=== PATIENT | male | born 1980 | race Caucasian/White ===

== ENCOUNTER 2018-05-17 06:13 | Inpatient (IN) | payer OTHER, SELFPAY ==
[2018-04-30 15:26] VITALS: BMI 30.3
[2018-05-17] VITALS (15 sets, daily range): BP systolic 139–158; BP diastolic 91–109; PULSE 64–104; RESP 10–20; TEMP 36.2–36.8; O2SAT 92–99; BMI 29.5
--- NOTE | 2018-05-17 | DI.RAD.S_ITS ---
PROCEDURE: XR LUMBAR SPINE 2-3V INDICATIONS: L4-5 TLIF TECHNIQUE: 2 views of the lumbar spine were acquired. COMPARISON: [facility] [place], CR, XR LUMBAR SPINE 2 OR 3 VIEWS, 01/24/2018, 8:21. [facility], CR, XR LUMBAR SPINE 2 OR 3 VIEWS, 10/30/2017, 13:59. [facility], MR, MR LUMBAR SPINE WITH/WITHOUT CONTRAST, 11/03/2017, 9:15. FINDINGS: There is discectomy and posterior fusion at L4-L5 and L5-S1. Surgical hardware are in expected position. IMPRESSION: Discectomy and posterior fusion at L4-L5 and L5-S1. Dictated by: Griselda Barone M.D. on 05/17/2018 at 12:30 Approved by: Griselda Barone M.D. on 05/17/2018 at 12:33
[2018-05-17] MEDS: LACTATED RINGERS 1,000 ML 42 ML IV ×3 (07:07→15:05)
--- NOTE | 2018-05-17 07:45 | PM.PREOP ---
Pre-operative Note Interval Note Pre-op Check: Yes History & Physical Reviewed by Physician and Yes Exam Performed Changes: No
[2018-05-17] MEDS: CEFAZOLIN 2 GM/100 ML FROZ.PIGGY IV ×2 (07:48→16:20)
[2018-05-17] MEDS: BUPIVACAINE LIPOSOME 266 MG/20 ML VIAL INJ (08:30)
[2018-05-17] MEDS: BUPIVACAINE 0.25% W/ EPI VIAL 50 ML INJ (08:30)
[2018-05-17] MEDS: VANCOMYCIN 1,000 MG VIAL 1000 MG TOP (08:31)
[2018-05-17] MEDS: THROMBIN (BOVINE) 5,000 UNIT VIAL 5000 UNIT TOP (08:31)
[2018-05-17] MEDS: SODIUM CHLORIDE 0.9% 1,000 ML, GENTAMICIN 80 MG IRR (08:31)
--- NOTE | 2018-05-17 08:38 | SUR.OPER ---
Prone on spine table, head in foam head support, padded chest and pelvic supports, gel pad at knees, lower legs supported by pillows; nipples, genitalia and toes free of pressure, arms secured on foam padded arm boards at <90 degrees abduction. Tape over blanket at thigh secured to table.
[2018-05-17] MEDS: ACETAMINOPHEN IV 1,000 MG/100 ML VIAL 400 MG IV (11:15)
--- NOTE | 2018-05-17 12:04 | PM.OP.1 ---
Operative Date/Time/Diagnoses Date of procedure: 05/17/18 Time of procedure: 12:04 Pre-op diagnosis: lumbar stenosis with radiculopathy lumbar disc herniation history lumbar laminectomy Post-op diagnosis: same Procedure & Clinicians Procedure: L45 TLIF (post/post innerbody fusion) screws L4, L5, S1 cage icbg revision right L5S1 laminotomy L4-5 laminectomy microscope Same procedure as scheduled: Yes Indications: [age] year old male with intractable pain from stenosis and disc herniation. They had failed conservative management and requested operative intervention. Risks and benefits of surgery were discussed and appropriate consents were obtained. Surgeon: Fidel Hess Ice Cream Freezer Helper: Genia Templeton Click Yes if Unassisted: No Anesthesia Type: General Operative Notes Findings: None Closure Type: primary Specimen(s): none sent Implants & Drains: NuVasive Precept MAS screws Globus Rise cage Applied: catheter Estimated Blood Loss (mL): 20 Procedure in detail: The patient was brought to the operating room and intubated on the table. A time-out was performed. They were then rolled over to the well-padded Luis Armando table in the prone position. Preoperative antibiotics were given. The back was prepped and draped in the standard sterile fashion. A 8 cm incision was made in the midline using his previous midline incision. We dissected down the right sided paraspinals to expose the lamina out over the facets to the transverse processes. Extreme care was taken while going over his previous laminotomy at L5-S1. We exposed his old screws at L5 and S1. The set screws and que were removed. We used a bur to decorticate the transverse processes of L4 and L5. The bur also was used to start the hole at the junction of the transverse process and the facet. We then advanced a gear shifter down the right pedicle of L4 using neuromonitoring. We then checked with a ball probe for a floor and four jacobson. We then tapped and again checked with a ball probe. The screw was placed into the pedicle of L4 on the right. We placed a preliminary que and loosely locked it down. Using a combination of bur and Kerrison rongeur a laminectomy was performed from the right side. We cleared over past the midline and carefully depressed the dura until we were able to decompress the opposite side. We cleared out the neural foramen. He had a large amount of subarticular stenosis that had to be decompressed. This completed the laminectomy at L4-5. This was separate and distinct from the TLIF approach as we were decompressing the canal and the nerves. We then began the TLIF prep. A complete facetectomy was performed on this side at L4-5. We carefully cleaned up the remainder of the foramen until we could easily retract the exiting root as well as clearing medially below the dura and expose the disc space. The disc was prepped with bipolar and then an annulotomy was performed. We performed a diskectomy using a combination of paddles, ewa, Kerrison, and curettes. We distracted the disc using a paddle and locked the que in an open position. We then filled the disc space with Osteocell bone graft. We then placed the globus Rise cage under fluoroscopy and then filled this in with more bone graft. This completed the posterior interbody fusion portion of the TLIF at L5-S1. We then placed the que and locked down the set screws. We then continued our dissection through the scar tissue at L5-S1. We did a complete revision right-sided laminotomy at L5-S1. We tracked down along the L4-5 facet and traced our L5 nerve root until it completely exited out the foramen. We then carefully started retracting the dura medially. There was a large amount of bony osteophytes growing posteriorly around the disc. We finally were able to retract the dura medially. We then used a osteotome to break up these osteophytes and removed them until there is just minimal scar tissue underneath the dura. This was quite extensive due to the large amount of scar tissue from his previous 2 surgeries at this level but it was finally done. The wound was copiously irrigated. A small stab incision was made over the PSIS. We used a Jamshidi needle to aspirate several mL of bone marrow from the pelvis. This was mixed with the remaining Osteocell and combined with all of the locally harvested bone graft and placed in the posterolateral gutter for the posterior fusion of the TLIF at L4-5. The fascia was closed. We then used fluoroscopy and made another 8 cm incision to the left of the midline. Bovie was used to split the fascia and then we percutaneously placed Jamshidi needles down the left pedicles of L4, L5, and S1 with fluoroscopy and neural monitoring. These were changed out 2 guidewires, tapped and then the MAS Precept screws were placed on this side as well. We placed a que and locked it down. Final x-rays were done. The wounds were irrigated. The fascia was closed. Vancomycin powder was placed in the wounds. The superficial and skin were closed. A sterile dressing was placed. The patient was then rolled over extubated and brought to recovery room without complications. Complications: none Condition: stable Disposition: PACU Plan for aftercare: Inpatient. Up with therapy
[2018-05-17] MEDS: HYDROMORPHONE 2 MG INJ 0.5 MG IV ×2 (12:55→13:10)
--- NOTE | 2018-05-17 14:25 | PC.NURSE ---
1335 Pt arrived to room 229 via bed from PACU. at bedside. Pt oriented x 3, is sleepy. SL to L f/a.
[2018-05-17] MEDS: LACTATED RINGERS 1,000 ML 125 ML IV (15:45)
[2018-05-17] MEDS: CELECOXIB 200 MG CAPSULE 400 MG PO (16:00)
[2018-05-17] MEDS: HYDROMORPHONE 1 MG INJ 0.5 MG IV ×2 (16:00→17:54)
[2018-05-17] MEDS: NICOTINE 21 MG PATCH TOP (16:00)
[2018-05-17] MEDS: hydrOXYzine pamoate 25 MG CAPSULE PO ×3 (16:00→23:46)
[2018-05-17] MEDS: HYDROCODONE/ACET 5/325 TABLET 2 TAB PO ×3 (16:00→23:47)
--- NOTE | 2018-05-17 17:12 | PT.IIE ---
Current Diagnoses Spinal stenosis, lumbar region with neurogenic claudication (05/17/18) Intervertebral disc disorders with radiculopathy, lumbar region (05/17/18) Dorsalgia, unspecified (05/17/18) Strain of muscle, fascia and tendon of lower back, subsequent encounter (05/17/18) Other specified postprocedural states (05/17/18) Surgery Performed Operation Date: 05/17/18 07:45 Actual Procedures p L4-5 Laminectomy and Fusion(TLIF)w/Bone Graft, Revision Laminectomy at L5-S1 on Right - Fidel Hess MD Surgical History (Last Updated 04/30/18 @ 15:35 by Ghada Bender, RN) History of laminectomy (Acute ~04/11/17) S/P epidural steroid injection (Acute) Status post right rotator cuff repair (Acute ~2010) Medical History (Last Updated 04/30/18 @ 16:08 by Ghada Bender, RN) Arthritis (Acute) Back pain (Acute) Lumbar disc herniation with radiculopathy (Acute) Lumbar stenosis with neurogenic claudication (Acute) Strain of lumbar region (Acute) URI (upper respiratory infection) (Acute ~03/2018) Physical Therapy Inpatient Evaluation/Re-Eval M1 PT/OT-IP Prior Functional Status Start: 05/17/18 16:56 Freq: NEEDED Status: Active Protocol: Document 05/17/18 16:10 DCW (Rec: 05/17/18 17:11 DCW [id number]) Medical Review Prior Functional Status Medical History Reviewed Yes Mobility and Gait Independent gait with right antalgia Social History Household Members spouse children Living Arrangements House Number of Floors (Floors) Two Floors Number of Stairs To Enter/Railing? Slpit level home, 7 up, 7 down Home Equipment Front Wheel Walker Straight Cane M2 PT-IP Current Condition Start: 05/17/18 16:56 Freq: NEEDED Status: Active Protocol: Document 05/17/18 16:10 DCW (Rec: 05/17/18 17:11 DCW [id number]) Physical Therapy Current Condition Current Condition Evaluation Date 05/17/18 Treatment Diagnosis TLIF/Laminectomy Onset Date 05/17/18 Precautions Lumbar Precautions Log Roll No Twisting Limit Bending Lifting Restriction of 10 lbs Gait Belt above Incisional Area Weight Bearing Status Weight Bearing Status Weight Bear as Tolerated M3 PT-IP Subjective Start: 05/17/18 16:56 Freq: NEEDED Status: Active Protocol: Document 05/17/18 16:10 DCW (Rec: 05/17/18 17:11 DC [id number]) Subjective Physical Therapy Visit Type Type Initial Evaluation Visit Start Time 16:10 Visit Stop Time 16:54 Total Visit Minutes 44 Number of SCIENTIST IMMUNOLOGY Visits 0 Physical Therapy Visit Comments Patient Goals I've been here before, I know what I need to do to get out of here. Walk a few laps and do those stairs. Therapy Pain Assessment Pain When Pain Assessed At Rest Pain Present Pain Present Pain Reported FLACC Pain Scale Face Frequent/constant frown Activity Squirming,shifting Location Lower Back Intensity 6 Scale Used Numeric (1 - 10) Description Throbbing With Movement Pain Behaviors Facial Grimacing Guarding Restlessness Wincing Pain Management Techniques Re-positioning M4 PT-IP Mobility and Gait Start: 05/17/18 16:56 Freq: NEEDED Status: Active Protocol: Document 05/17/18 16:10 DCW (Rec: 05/17/18 17:11 DC [id number]) PT-Bed Mobility Assessment Rolling Type of Rolling Roll to Left Level of Assist Standby Assistance Supine to Sit Supine to Sit Minimal Assistance Sit to Supine Sit to Supine Minimal Assistance PT-Transfer Assessment Sit to and From Stand Sit to and from Stand Minimal Assistance 1 Person Assistance Equipment Transfer Assistive Device Bed Rail Gait Belt Front Wheeled Walker Orthotic/Prosthetic Devices or Brace: No Gait Assessment Gait Gait Assistance Required: Contact Guard Assist Distance (Feet) 150 Able to Maintain Weight Bearing Status Yes During Gait Assistive Devices Assistive Device Gait Belt Front Wheeled Walker Orthotic/Prosthetic Devices or Brace: No Gait Deviations General Gait Pattern Flexed Trunk Comments Gait Comments Pt displayed no knee buckling, reported good strength and stability of bilateral legs PT-Balance Assessment Sitting Balance and Reactions Static Sitting Balance Ability Normal Dynamic Sitting Balance Ability Normal Standing Balance and Reactions Static Standing Balance Ability Good Dynamic Standing Balance Ability Good M5 PT-IP Objective Assessments Start: 05/17/18 16:56 Freq: NEEDED Status: Active Protocol: Document 05/17/18 16:10 DCW (Rec: 05/17/18 17:11 DCW [id number]) Orientation Orientation/Cognition Orientation Name Birthday Date Day of Week Place Situation Language Function Ability No Deficits Noted Safety Awareness Understands Safety Issues Memory Description No Deficits Noted Gross Range of Motion Upper Extremity ROM Assessment Within Functional Limits Lower Extremity ROM Assessment Within Functional Limits Strength Lower Extremity Strength Assessment Right Impaired Comments Strength Comments Pt LE MMT grossly 4-/5 secondary to pain with resisted movement Sensation Assessment Sensation Gross Sensation WNL M7 PT-IP Assessment and Plan Start: 05/17/18 16:56 Freq: NEEDED Status: Active Protocol: Document 05/17/18 16:10 DCW (Rec: 05/17/18 17:11 DCW [id number]) PT Summary Assessment and Plan Potential Rehabilitation Potential Excellent Status of Condition at Evaluation Stable Summary Impairments Pain ROM Strength Gait Activity Tolerance Assessment Summary Pt presents on day of surgery with pain secondary to surgical intervention, which results in some difficulty with transitional movements and ambulation. Pt happily reported once standing and walking that he had no numbness and tingling in his right leg, which is a big change for him, and he was thrilled, despite pain increasing to 9/10 during supine->sit->stand. Pt able to walk with no loss of balance or difficulty, able to shift weight [id number], standing on each leg with UE support using FWW. Skilled therapy should focus on continued gait , stair assessment, TherEx, and transitional movements. Goals Bed Mobility Goal Independent Transfer Goal Independent Gait Goal Independent Gait Distance 300' Other Goals Ascend/Descend 3 stairs x2 with railing independently Days to Meet Goals 2 Frequency of Treatment Frequency Of Treatment Twice a Day Treatment Plan Physical Therapy Treatment Plan Transfer Training Gait Training Therapeutic Exercise Balance Retraining Recommendations To Nursing Amount of Assist Needed 1 Person Assist Discharge Recommendations PT Discharge Recommendations Home
[2018-05-17] MEDS: DOCUSATE 100 MG CAPSULE PO (20:04)
[2018-05-17] MEDS: CELECOXIB 200 MG CAPSULE PO (20:04)
[2018-05-17] MEDS: SENNOSIDES 8.6 MG TABLET 17.2 MG PO (20:05)
[2018-05-17] MEDS: GABAPENTIN 300 MG CAPSULE PO (20:05)
[2018-05-18] VITALS (7 sets, daily range): BP systolic 127–151; BP diastolic 78–97; PULSE 73–90; RESP 16–18; TEMP 36.2–36.8; O2SAT 95–98
[2018-05-18] MEDS: CEFAZOLIN 2 GM/100 ML FROZ.PIGGY IV (00:13)
[2018-05-18] MEDS: HYDROMORPHONE 1 MG INJ 0.2 MG IV (02:20)
[2018-05-18] MEDS: hydrOXYzine pamoate 25 MG CAPSULE PO ×5 (04:25→20:09)
[2018-05-18] MEDS: HYDROCODONE/ACET 5/325 TABLET 2 TAB PO (04:25)
[2018-05-18 05:26] LABS: Hematocrit 39.7 % (41-53); Hemoglobin 13.6 g/dL (13.5-17.5)
--- NOTE | 2018-05-18 07:46 | PM.PNPO.1 ---
Subjective Date Patient Seen: 05/18/18 Time Patient Seen: 07:47 Interval history: He is doing great. All of his neurologic pain in the legs is gone. Back pain is manageable. Exam Vital Signs (past 8 hours): - 05/18/18 00:15 05/18/18 04:00 Temperature 97.9 F 98.1 F Pulse Rate 89 86 Respiratory Rate 18 16 Blood Pressure 139/88 127/80 Pulse Oximetry 98 98 Fraction of Inspired Oxygen 21 Oxygen Delivery Method Room Air Oxygen Flow Rate 0 Const Orientation: alert and oriented x3 Back/Spine/Pelvis Other: Dressing mild dry drainage. 5/5 motor both lower extremities. Objective Labs Result Diagrams: 05/18/18 04:55 Labs: Laboratory Results - last 24 hr 05/18/18 04:55 Hgb 13.6 Hct 39.7 L Assessment & Plan Post-op Postoperative Procedures Operation Date: 05/17/18 07:45 Actual Procedures Side Surgeon p L4-5 Laminectomy and Fusion(TLIF)w/Bone Graft, Revision Laminectomy at L5-S1 on Right Fidel Hess MD He is doing great. Mobilize with physical therapy. Anticipate discharge tomorrow probably. Quality VTE Deep Vein Thrombosis/Pulmonary Embolism Present on Admission: No
[2018-05-18] MEDS: CELECOXIB 200 MG CAPSULE PO ×2 (08:28→20:10)
[2018-05-18] MEDS: DOCUSATE 100 MG CAPSULE PO ×2 (08:28→20:10)
[2018-05-18] MEDS: HYDROCODONE/ACET 5/325 TABLET 1 TAB PO (08:31)
[2018-05-18] MEDS: OXYCODONE IR 5 MG TABLET PO (09:21)
--- NOTE | 2018-05-18 11:15 | PT.IPTN ---
Current Diagnoses Spinal stenosis, lumbar region with neurogenic claudication (05/17/18) Intervertebral disc disorders with radiculopathy, lumbar region (05/17/18) Dorsalgia, unspecified (05/17/18) Strain of muscle, fascia and tendon of lower back, subsequent encounter (05/17/18) Other specified postprocedural states (05/17/18) Surgery Performed Operation Date: 05/17/18 07:45 Actual Procedures p L4-5 Laminectomy and Fusion(TLIF)w/Bone Graft, Revision Laminectomy at L5-S1 on Right - Fidel Hess MD Physical Therapy Treatment Note M2 PT-IP Current Condition Start: 05/17/18 16:56 Freq: NEEDED Status: Active Protocol: Document 05/17/18 16:10 DCW (Rec: 05/17/18 17:11 DCW [id number]) Physical Therapy Current Condition Current Condition Evaluation Date 05/17/18 Treatment Diagnosis TLIF/Laminectomy Onset Date 05/17/18 Precautions Lumbar Precautions Log Roll No Twisting Limit Bending Lifting Restriction of 10 lbs Gait Belt above Incisional Area Weight Bearing Status Weight Bearing Status Weight Bear as Tolerated M3 PT-IP Subjective Start: 05/17/18 16:56 Freq: NEEDED Status: Active Protocol: Document 05/18/18 11:10 GGD (Rec: 05/18/18 12:39 GGD [id number]) Subjective Physical Therapy Visit Type Type Treatment Note Visit Start Time 10:35 Visit Stop Time 11:10 Total Visit Minutes 35 Number of NEWS CLERK Visits 1 Physical Therapy Visit Comments Patient Comments Pt states he ready to get up. Therapy Pain Assessment Pain When Pain Assessed At Rest Pain Present Pain Present Pain Reported Location Lower Back Intensity 4 Scale Used Numeric (1 - 10) M4 PT-IP Mobility and Gait Start: 05/17/18 16:56 Freq: NEEDED Status: Active Protocol: Document 05/18/18 11:10 GGD (Rec: 05/18/18 12:39 GGD [id number]) PT-Bed Mobility Assessment Rolling Type of Rolling Roll to Left Level of Assist Standby Assistance Supine to Sit Supine to Sit Contact Guard Assistance Bedrails PT-Transfer Assessment Sit to and From Stand Sit to and from Stand Contact Guard Assistance Use of Upper Extremities Equipment Transfer Assistive Device Bed Rail Front Wheeled Walker Orthotic/Prosthetic Devices or Brace: No Transfers Transfer Destination Chair Gait Assessment Gait Gait Assistance Required: Contact Guard Assist Distance (Feet) 500 Able to Maintain Weight Bearing Status Yes During Gait Assistive Devices Assistive Device Gait Belt Front Wheeled Walker Orthotic/Prosthetic Devices or Brace: No Gait Deviations General Gait Pattern Flexed Trunk Factors Limiting Gait Function Factors Limiting Gait Function Limited Range of Motion Pain Comments Gait Comments greater than 500 feet Stair Climbing Assessment Evaluation Level of Assist On Stairs Contact Guard Assistance Devices Stair Climbing Assistive Devices Right Railing Technique/Endurance Stair Climbing Direction Ascend and Descend Stair Climbing Technique Step to Step Number of Steps Climbed 3 Query Text: Stair Climbing Set # Repetitions (reps) 2 M5 PT-IP Objective Assessments Start: 05/17/18 16:56 Freq: NEEDED Status: Active Protocol: Document 05/17/18 16:10 DCW (Rec: 05/17/18 17:11 DCW [id number]) Orientation Orientation/Cognition Orientation Name Birthday Date Day of Week Place Situation Language Function Ability No Deficits Noted Safety Awareness Understands Safety Issues Memory Description No Deficits Noted Gross Range of Motion Upper Extremity ROM Assessment Within Functional Limits Lower Extremity ROM Assessment Within Functional Limits Strength Lower Extremity Strength Assessment Right Impaired Comments Strength Comments Pt LE MMT grossly 4-/5 secondary to pain with resisted movement Sensation Assessment Sensation Gross Sensation WNL M7 PT-IP Assessment and Plan Start: 05/17/18 16:56 Freq: NEEDED Status: Active Protocol: Document 05/18/18 11:10 GGD (Rec: 05/18/18 12:39 GGD [id number]) PT Summary Assessment and Plan Summary Assessment Summary Pt improving with mobility. He is safe and stable with gait and stair mobility. He can D/C home when medicaly stable. Frequency of Treatment Frequency Of Treatment Twice a Day Treatment Plan Physical Therapy Treatment Plan Transfer Training Gait Training Therapeutic Exercise Balance Retraining Recommendations To Nursing Amount of Assist Needed 1 Person Assist Discharge Recommendations PT Discharge Recommendations Home with Assistance
[2018-05-18] MEDS: OXYCODONE IR 10 MG TABLET PO ×3 (12:27→20:09)
--- NOTE | 2018-05-18 13:53 | OT.IP.TRT ---
Current Diagnoses Spinal stenosis, lumbar region with neurogenic claudication (05/17/18) Intervertebral disc disorders with radiculopathy, lumbar region (05/17/18) Dorsalgia, unspecified (05/17/18) Strain of muscle, fascia and tendon of lower back, subsequent encounter (05/17/18) Other specified postprocedural states (05/17/18) Surgery Performed Operation Date: 05/17/18 07:45 Actual Procedures p L4-5 Laminectomy and Fusion(TLIF)w/Bone Graft, Revision Laminectomy at L5-S1 on Right - Fidel Hess MD Occupational Therapy Treatment Note M3 OT- IP Subjective and Pain Start: 05/18/18 13:52 Freq: Status: Active Protocol: Document 05/18/18 13:52 [facility] (Rec: 05/18/18 13:53 [facility] [id number]) OT- Subjective Occupational Therapy Visit Type Type Administrative Note Notes Pt has had history of back surgeries, has all AED, support at home and therefore no OT eval indicated at this time. Pt has good understanding for all. Therefore discharge Ot eval order.
--- NOTE | 2018-05-18 14:20 | PT.IPTN ---
Current Diagnoses Spinal stenosis, lumbar region with neurogenic claudication (05/17/18) Intervertebral disc disorders with radiculopathy, lumbar region (05/17/18) Dorsalgia, unspecified (05/17/18) Strain of muscle, fascia and tendon of lower back, subsequent encounter (05/17/18) Other specified postprocedural states (05/17/18) Surgery Performed Operation Date: 05/17/18 07:45 Actual Procedures p L4-5 Laminectomy and Fusion(TLIF)w/Bone Graft, Revision Laminectomy at L5-S1 on Right - Fidel Hess MD Physical Therapy Treatment Note M2 PT-IP Current Condition Start: 05/17/18 16:56 Freq: NEEDED Status: Active Protocol: Document 05/17/18 16:10 DCW (Rec: 05/17/18 17:11 DCW [id number]) Physical Therapy Current Condition Current Condition Evaluation Date 05/17/18 Treatment Diagnosis TLIF/Laminectomy Onset Date 05/17/18 Precautions Lumbar Precautions Log Roll No Twisting Limit Bending Lifting Restriction of 10 lbs Gait Belt above Incisional Area Weight Bearing Status Weight Bearing Status Weight Bear as Tolerated M3 PT-IP Subjective Start: 05/17/18 16:56 Freq: NEEDED Status: Active Protocol: Document 05/18/18 13:50 GGD (Rec: 05/18/18 15:24 GGD [id number]) Subjective Physical Therapy Visit Type Type Treatment Note Visit Start Time 13:50 Visit Stop Time 14:20 Total Visit Minutes 30 Number of COTTRELL OPERATOR Visits 2 Physical Therapy Visit Comments Patient Comments Pt states he ready to get up and walk. Therapy Pain Assessment Pain When Pain Assessed At Rest Pain Present Pain Present Pain Reported Location Lower Back Intensity 4 Scale Used Numeric (1 - 10) Description Aching With Movement Pain Management Techniques Re-positioning Timing of Activity with Medications M4 PT-IP Mobility and Gait Start: 05/17/18 16:56 Freq: NEEDED Status: Active Protocol: Document 05/18/18 13:50 GGD (Rec: 05/18/18 15:24 GGD [id number]) PT-Bed Mobility Assessment Rolling Type of Rolling Roll to Left Level of Assist Standby Assistance Supine to Sit Supine to Sit Contact Guard Assistance Bedrails Sit to Supine Sit to Supine Contact Guard Assistance Bedrails Scooting Scooting to Edge of Bed Independent PT-Transfer Assessment Sit to and From Stand Sit to and from Stand Contact Guard Assistance Use of Upper Extremities Equipment Transfer Assistive Device Bed Rail Front Wheeled Walker Orthotic/Prosthetic Devices or Brace: No Transfers Transfer Destination Chair Gait Assessment Gait Gait Assistance Required: Contact Guard Assist Distance (Feet) 500 Able to Maintain Weight Bearing Status Yes During Gait Assistive Devices Assistive Device Gait Belt Front Wheeled Walker Orthotic/Prosthetic Devices or Brace: No Gait Deviations General Gait Pattern Flexed Trunk Factors Limiting Gait Function Factors Limiting Gait Function Limited Range of Motion Pain Comments Gait Comments greater than 500 feet M5 PT-IP Objective Assessments Start: 05/17/18 16:56 Freq: NEEDED Status: Active Protocol: Document 05/17/18 16:10 DCW (Rec: 05/17/18 17:11 DCW [id number]) Orientation Orientation/Cognition Orientation Name Birthday Date Day of Week Place Situation Language Function Ability No Deficits Noted Safety Awareness Understands Safety Issues Memory Description No Deficits Noted Gross Range of Motion Upper Extremity ROM Assessment Within Functional Limits Lower Extremity ROM Assessment Within Functional Limits Strength Lower Extremity Strength Assessment Right Impaired Comments Strength Comments Pt LE MMT grossly 4-/5 secondary to pain with resisted movement Sensation Assessment Sensation Gross Sensation WNL M6 PT-IP Treatment Start: 05/17/18 16:56 Freq: NEEDED Status: Active Protocol: Document 05/18/18 13:50 GGD (Rec: 05/18/18 15:24 GGD [id number]) Physical Therapy Treatment Education Education Provided Precautions M7 PT-IP Assessment and Plan Start: 05/17/18 16:56 Freq: NEEDED Status: Active Protocol: Document 05/18/18 13:50 GGD (Rec: 05/18/18 15:24 GGD [id number]) PT Summary Assessment and Plan Summary Assessment Summary Pt improving with bed mobility . He been using bed rails. He ambulating with FWW with mod use of UE support. Frequency of Treatment Frequency Of Treatment Twice a Day Treatment Plan Physical Therapy Treatment Plan Transfer Training Gait Training Therapeutic Exercise Balance Retraining Recommendations To Nursing Amount of Assist Needed 1 Person Assist Discharge Recommendations PT Discharge Recommendations Home with Assistance
--- NOTE | 2018-05-18 15:18 | PC.NURSE ---
05/18 1518; pt alert and oriented x4, vss on ra, pain stated to be controlled with current prn analgesics. CMS is intact, dressing with some sero-sang drainage but not leaking, and hemov present and compressed. Pt walked halls with physical therapy, tolerated well, standby assist with FWW in room, transferring well. Hyde removed at 1230, due to void.
[2018-05-18] MEDS: diphenhydrAMINE 25 MG TABLET PO ×2 (17:07→23:22)
[2018-05-18] MEDS: SENNOSIDES 8.6 MG TABLET 17.2 MG PO (20:10)
[2018-05-18] MEDS: GABAPENTIN 300 MG CAPSULE PO (20:10)
[2018-05-18] MEDS: HYDROMORPHONE 1 MG INJ 0.5 MG IV (20:17)
[2018-05-19] MEDS: OXYCODONE IR 10 MG TABLET PO ×4 (00:20→11:55)
[2018-05-19] MEDS: hydrOXYzine pamoate 25 MG CAPSULE PO ×3 (00:20→12:17)
[2018-05-19 04:24] VITALS: BP 124/71; PULSE 70; RESP 16; TEMP 36; O2SAT 96
[2018-05-19 07:45] VITALS: BP 124/72; PULSE 81; RESP 18; TEMP 36.6; O2SAT 98
[2018-05-19] MEDS: CELECOXIB 200 MG CAPSULE PO (08:19)
[2018-05-19] MEDS: DOCUSATE 100 MG CAPSULE PO (08:19)
[2018-05-19] MEDS: SODIUM CHLORIDE 0.9% FLUSH 10 ML IV (08:21)
--- NOTE | 2018-05-19 09:25 | PT.IPTN ---
Current Diagnoses Spinal stenosis, lumbar region with neurogenic claudication (05/17/18) Intervertebral disc disorders with radiculopathy, lumbar region (05/17/18) Dorsalgia, unspecified (05/17/18) Strain of muscle, fascia and tendon of lower back, subsequent encounter (05/17/18) Other specified postprocedural states (05/17/18) Surgery Performed Operation Date: 05/17/18 07:45 Actual Procedures p L4-5 Laminectomy and Fusion(TLIF)w/Bone Graft, Revision Laminectomy at L5-S1 on Right - Fidel Hess MD Physical Therapy Treatment Note M2 PT-IP Current Condition Start: 05/17/18 16:56 Freq: NEEDED Status: Active Protocol: Document 05/17/18 16:10 DCW (Rec: 05/17/18 17:11 DCW [id number]) Physical Therapy Current Condition Current Condition Evaluation Date 05/17/18 Treatment Diagnosis TLIF/Laminectomy Onset Date 05/17/18 Precautions Lumbar Precautions Log Roll No Twisting Limit Bending Lifting Restriction of 10 lbs Gait Belt above Incisional Area Weight Bearing Status Weight Bearing Status Weight Bear as Tolerated M3 PT-IP Subjective Start: 05/17/18 16:56 Freq: NEEDED Status: Active Protocol: Document 05/19/18 09:00 GGD (Rec: 05/19/18 11:38 GGD [id number]) Subjective Physical Therapy Visit Type Type Treatment Note Visit Start Time 09:00 Visit Stop Time 09:25 Total Visit Minutes 25 Number of SPECIALTY TRIMMER Visits 3 Physical Therapy Visit Comments Patient Comments Pt states he had some pain over night. Therapy Pain Assessment Pain When Pain Assessed At Rest Pain Present Pain Present Pain Reported Location Lower Back Intensity 5 Scale Used Numeric (1 - 10) Pain Management Techniques Timing of Activity with Medications M4 PT-IP Mobility and Gait Start: 05/17/18 16:56 Freq: NEEDED Status: Active Protocol: Document 05/19/18 09:00 GGD (Rec: 05/19/18 11:38 GGD [id number]) PT-Bed Mobility Assessment Rolling Type of Rolling Roll to Left Level of Assist Standby Assistance Supine to Sit Supine to Sit Standby Assistance Sit to Supine Sit to Supine Standby Assistance Scooting Scooting to Edge of Bed Independent PT-Transfer Assessment Sit to and From Stand Sit to and from Stand Standby Assistance Use of Upper Extremities Equipment Transfer Assistive Device Bed Rail Front Wheeled Walker Orthotic/Prosthetic Devices or Brace: No Transfers Transfer Destination Bed Gait Assessment Gait Gait Assistance Required: Contact Guard Assist Distance (Feet) 500 Able to Maintain Weight Bearing Status Yes During Gait Assistive Devices Assistive Device Gait Belt Front Wheeled Walker Orthotic/Prosthetic Devices or Brace: No Gait Deviations General Gait Pattern Flexed Trunk Factors Limiting Gait Function Factors Limiting Gait Function Limited Range of Motion Pain Comments Gait Comments greater than 500 feet, 40 feet of gait without FWW. Stair Climbing Assessment Evaluation Level of Assist On Stairs Contact Guard Assistance Devices Stair Climbing Assistive Devices Right Railing Technique/Endurance Stair Climbing Direction Ascend and Descend Stair Climbing Technique Step Over Step Number of Steps Climbed 3 Query Text: Stair Climbing Set # Repetitions (reps) 2 M5 PT-IP Objective Assessments Start: 05/17/18 16:56 Freq: NEEDED Status: Active Protocol: Document 05/17/18 16:10 DCW (Rec: 05/17/18 17:11 DCW [id number]) Orientation Orientation/Cognition Orientation Name Birthday Date Day of Week Place Situation Language Function Ability No Deficits Noted Safety Awareness Understands Safety Issues Memory Description No Deficits Noted Gross Range of Motion Upper Extremity ROM Assessment Within Functional Limits Lower Extremity ROM Assessment Within Functional Limits Strength Lower Extremity Strength Assessment Right Impaired Comments Strength Comments Pt LE MMT grossly 4-/5 secondary to pain with resisted movement Sensation Assessment Sensation Gross Sensation WNL M6 PT-IP Treatment Start: 05/17/18 16:56 Freq: NEEDED Status: Active Protocol: Document 05/19/18 09:00 GGD (Rec: 05/19/18 11:38 GGD [id number]) Physical Therapy Treatment Education Education Provided Precautions M7 PT-IP Assessment and Plan Start: 05/17/18 16:56 Freq: NEEDED Status: Active Protocol: Document 05/19/18 09:00 GGD (Rec: 05/19/18 11:38 GGD [id number]) PT Summary Assessment and Plan Summary Assessment Summary Pt improving with mobility. He able to progress gait without assistive devices and stair with step over gait. Frequency of Treatment Frequency Of Treatment Twice a Day Treatment Plan Physical Therapy Treatment Plan Transfer Training Gait Training Therapeutic Exercise Balance Retraining Recommendations To Nursing Amount of Assist Needed 1 Person Assist Discharge Recommendations PT Discharge Recommendations Home with Assistance
--- NOTE | 2018-05-19 09:51 | PM.DS.1 ---
History of Present Illness Date Patient Seen: 05/19/18 Time Patient Seen: 09:51 Chief complaint: translaminar interbody fusion/laminotomy gloria not Narrative: Details of the patient's H&P can be found in the electronic chart. Discharge Providers Date of admission: 05/17/18 06:13 Primary care physician: KASSIE Mariano Consults: 05/17/18 15:16 Consult to Occupational Therapy Evaluate & Treat Comment: Physician Instructions: Evaluate and treat Consult to Physical Therapy Evaluate & Treat Comment: Physician Instructions: Evaluate and Treat Discharge provider: Esther Romo PA-C Summary Discharge Diagnosis: 1. lumbar stenosis with radiculopathy 2. lumbar disc herniation 3. history lumbar laminectomy Hospital Course: Patient was taken operating room where he had a Lami/fusion by Dr. Hess. He recovered well was transferred to the floor for further care. Postop day 2, patient was ambulating well, eating and drinking well, pain under control and voiding without difficulty. He was ready to be discharged home. Will follow up in office in 10-14 days. Status at Discharge Cognitive/behavioral status at discharge: Alert orient x3 Functional status at discharge: uses cane/walker Overall status at discharge: patient is progressing back to baseline Time Spent with Patient Less than 30 minutes Exam Vital Signs (past 8 hours): - 05/19/18 04:24 Temperature 96.8 F L Pulse Rate 70 Respiratory Rate 16 Blood Pressure 124/71 Pulse Oximetry 96 Fraction of Inspired Oxygen 21 Oxygen Delivery Method Room Air Oxygen Flow Rate 0 Narrative Exam Narrative: Patient in bed. Appears comfortable. Back dressing soaked but no active drainage. Hemovac drain in with <10ml. Bilateral calves soft and nontender. 5/5 BLE. Neurovascular status intact. Patient alert orient x3. Objective Labs Result Diagrams: 05/18/18 04:55 Discharge Plan Discharge Plan Patient Disposition: Home Discharge comment: Notify the office if there is drainage on the dressing for wound check. Discharge Med Rec/Prescriptions Prescriptions: New hydroxyzine pamoate 25 mg Capsule 25 mg PO Q4HR PRN (Reason: Nausea And Vomiting) Qty: 40 RF: 0 oxycodone 10 mg Tablet 10 mg PO Q4-6H PRN (Reason: Pain, Severe (7-10)) Qty: 60 RF: 0 celecoxib [Celebrex] 200 mg Capsule 200 mg PO DAILY Qty: 30 RF: 0 gabapentin [Neurontin] 300 mg Capsule 300 mg PO BEDTIME Qty: 30 RF: 0 Provider Discharge Instructions Diet: Diet as Tolerated Activity: Ambulate with assistance of a walker/cane. No lifting bending or twisting. Cold/Heat Therapy: Apply ice as needed for inflammation and swelling. Skin/Wound/Dressing Care Report to your healthcare provider any signs of infection, such as:: chills, fever, night sweats, increased pain and unusual drainage Discharge Data Primary Care Provider: Cassi Gillette Attending Provider: Fidel Hess Admit Date/Time: 05/17/18 06:13 Quality VTE Deep Vein Thrombosis/Pulmonary Embolism Present on Admission: No
--- NOTE | 2018-05-19 15:28 | PC.NURSE ---
Discharge: Feels ready for d/c home. Seen by PT/OT and has received their final instructions. Hemovac d/c intact. Voids w/out diff. Po pain meds effective for pain. Dressing to low back changed to coversite and intact. Hemovac site is weepy, dressing changed prior to d/c home and he was given some dressing change supplies until he can pick some up. Discussed calling MD's office if needed if old hemovac site keeps leaking. Reviewed d/c instructions sheets for surgery and constipation. Reviewed lami precautions and log rolling. RX given. Spouse present at time of teaching. Questions answered. Pt d/c home via auto and w/family.
== END 2018-05-19 13:35 | disposition home or self-care (01) | DRG 455 ==
PROVIDERS: Admitting Provider Orthopaedic Surgery; Family Provider Nurse Practitioner Family; PCP Nurse Practitioner Family; Visit Provider Orthopaedic Surgery
PROC: 0SG00AJ Fusion of Lumbar Vertebral Joint with Interbody Fusion Device, Posterior Approach, Anterior Column, Open Approach (ICD-10-PCS; principal; 2018-05-17 07:45)
DX: M48.062 Spinal stenosis, lumbar region with neurogenic claudication (principal); S39.012D Strain of muscle, fascia and tendon of lower back, subsequent encounter; Z98.1 Arthrodesis status; F17.210 Nicotine dependence, cigarettes, uncomplicated; F17.220 Nicotine dependence, chewing tobacco, uncomplicated; M54.16 Radiculopathy, lumbar region; M51.26 Other intervertebral disc displacement, lumbar region
CPT/HCPCS: 36415; 72100; 76001; 85014; 85018; 94762; 97116; 97161; 97530; C1776; C9290; J0131; J0330; J0690; J1100; J1170; J2250; J2405; J2704; J3010